=== PATIENT | female | born 1955 | race African-American/Black ===

== ENCOUNTER → 2018-11-13 | Outpatient (CLI) | payer BC, MEDICARE ==
[~2018-11-13] MED LIST: ALLEGRA180 MG; FLEXERIL; LISINOPRIL10 MG PO; LISINOPRIL20 MG PO; NEURONTIN 300300 M1 PO
== END ==
LOC: M.RAD 12:44
DX: Z12.31 Encounter for screening mammogram for malignant neoplasm of breast (principal); R07.89 Other chest pain; M79.622 Pain in left upper arm

== ENCOUNTER → 2019-11-24 | Outpatient (CLI) | payer MEDICARE | LOC: M.RAD 11:00 | PROVIDERS: ATTEND Family Medicine | DX: Z12.31 Encounter for screening mammogram for malignant neoplasm of breast (principal) ==

== ENCOUNTER → 2021-01-03 | Outpatient (CLI) | payer MEDICARE | LOC: M.RAD 09:28 | PROVIDERS: ATTEND Family Medicine | DX: Z12.31 Encounter for screening mammogram for malignant neoplasm of breast (principal); N63.20 Unspecified lump in the left breast, unspecified quadrant ==

== ENCOUNTER → 2021-01-09 | Outpatient (CLI) | payer MEDICARE | LOC: M.RAD 01-05 09:33 | PROVIDERS: ATTEND Radiology Diagnostic Radiology | DX: N63.24 Unspecified lump in the left breast, lower inner quadrant (principal) ==

== ENCOUNTER → 2021-01-12 | Outpatient (CLI) | payer MEDICARE ==
--- NOTE | 2021-01-19 13:08 | PATH ---
[address] [address] PATHOLOGY RPT PROCEDURE Name: RITU ROBBINS Room: [facility]#: [id number] Admission: 01/12/21 Date of : 51 Discharge: Report #: [id number] Path Case #: [id number] [facility] Accession Number: [id number] . 01 Material submitted: . breast - LEFT BREAST MASS. Modifiers: left . 01 Clinical history: . 1.03X1.12X1.08CM 700 5CM FROM NIPPLE US/MAMMOTOME BX/LT BREAST MASS COLLECTED 09,FORMALIN 0934 . 02 Diagnosis: Breast "left mass 7:00, 5 cfn", needle biopsy: - INVASIVE DUCTAL CARCINOMA, HIGH GRADE (GRADE 3/3 - TOTAL SCORE 6/9) - MAXIMUM TUMOR SPAN 7 MM. - DUCTAL CARCINOMA IN SITU, SOLID / COMEDO TYPES, NUCELAR GRADE III/III. - PLEASE SEE CANCER CASE SUMMARY BELOW. . CANCER CASE SUMMARY: (INVASIVE CARCINOMA OF THE BREAST - Biopsy) Version: 1.1.1.0 Protocol Posting Date: September 2020 Procedure ___ Needle biopsy Specimen Laterality ___ Left TUMOR +Tumor Site ___ Clock position ___ 7 o'clock ___ 5 cm from nipple Histologic Type ___ Invasive carcinoma of no special type (ductal) Histologic Grade (Highland Histologic Score) ___ Highland Score Glandular (Acinar) / Tubular Differentiation ___ Score 3 (less than 10% of tumor area forming glandular / tubular structures) Nuclear Pleomorphism ___ Score 3 (Vesicular nuclei, often with prominent nucleoli, visible nucleoli, exhibiting marked variation in size and shape, occasionally with very large and bizarre forms) Mitotic Rate ___ Score 2 Overall Grade ___ Grade 3 (total score 8) +Tumor Size ___ Greatest dimension of largest invasive focus greater than 1 mm: [place] [address] PATHOLOGY RPT PROCEDURE Name: RITU ROBBINS Room: [facility]#: [id number] Admission: 01/12/21 Date of : 51 Discharge: Report #: [id number] Path Case #: [id number] 7 mm . Ductal Carcinoma In Situ (DCIS) ___ Present Architectural Patterns ___ Comedo ___ Solid Nuclear Grade ___ Grade III (high) Necrosis ___ Present, focal (small foci or single cell necrosis) ___ Present, central (expansive "comedo" necrosis) +Lymphovascular Invasion ___ Not identified +Microcalcifications ___ Not identified . SPECIAL STUDIES +Breast Biomarker Studies: Block A3 will be forwarded for breast biomarker studies, and the results will be the subject of an addendum report. (MLK/db; 01/13/2021) LBQ 01/16/2021 1403 Local . 02 Comment: The case is seen in co-review with Dr. Denny Dias who concurs with the above diagnosis on 11/12/2020. . The above findings are discussed with Beena Lackey in Dr. Michele Dao, on 01/16/2021. (MLK/db; 01/13/2021) . 02 Addendum: . Special studies report received from [facility], [address] [place] [address], [address], [place], [address], on case [id number], labeled with their number [id number], dated 01/18/2021. . Breast Predictive/Prognostic Marker Analysis . . Specimen Site: Lt Breast Mass, 7:00, 5 Cm FN, Needle Biopsy, Breast Cancer Specimen ID #: [id number] . ER (Estrogen Receptor) Negative Percent: 0.00 Analysis: Manual Staining Intensity: Not Applicable Internal Control: [place] [address] PATHOLOGY RPT PROCEDURE Name: RITU ROBBINS Room: [facility] JESICA [place]#: [id number] Admission: 01/12/21 Date of : 51 Discharge: Report #: [id number] Path Case #: [id number] Comments: ER IHC reviewed with Dr Paula Packer (surgical pathologist) with concurrence. . UT (Progesterone Receptor) Negative Percent: 0.00 Analysis: Manual Staining Intensity: Not Applicable Internal Control: Present and Positive . HER2 Negative Score: 1+ Analysis: Manual . Ki-67 High Proliferation Percent: 70.00% Analysis: Manual . Time to Fixation (Cold Ischemic Time): 3 minutes Duration of Fixation: 12 hours, 16 minutes Type of Fixative: 10% Neutral Buffered Formalin . at [facility]. Frantz Lee MD Pathologist . Methodology: The HER2 Receptor protein expression is analyzed using the Cherry Log HER2 rabbit monoclonal antibody (clone [id number]). This assay is used for diagnostic determination of the HER2 protein over-expression in paraffin embedded, formalin fixed breast cancer tissue on the Cherry Log Benchmark. The specimen is processed using a secondary antibody-HRP conjugate detection system. The membrane staining of the tumor is determined either by manual score or image analysis. This antibody is intended for in vitro diagnostic use. The score is reported as 0, 1+, 2+, or 3+. This test is used for clinical purposes. . A rabbit monoclonal antibody (clone SP1) that recognized the Estrogen Receptor is used to perform immunohistochemistry on routinely fixed (formalin) paraffin embedded tissue on the Cherry Log Benchmark. The specimen is processed using a secondary antibody-HRP conjugate detection system. The percentage of stained tumor nuclei is determined either manually or by image analysis. This test is intended for in vitro diagnostic use. This test is used for clinical purposes. . A rabbit monoclonal antibody (clone 1E2) that [place] [address] PATHOLOGY RPT PROCEDURE Name: RITU ROBBINS Room: [facility]#: [id number] Admission: 01/12/21 Date of : 51 Discharge: Report #: [id number] Path Case #: [id number] Receptor is used to perform immunohistochemistry on routinely fixed (formalin) paraffin embedded tissue on the Cherry Log Benchmark. The specimen is processed using a secondary antibody-HRP conjugate detection system. The percentage of stained tumor nuclei is determined either manually or by image analysis. This test is intended for in vitro diagnostic use. This test is used for clinical purposes. . A rabbit monoclonal antibody (clone 30-9) that recognized Ki67 is used to perform immunohistochemistry on routinely fixed (formalin) paraffin embedded tissue on the [employer] Log Benchmark. The specimen is processed using a secondary antibody-HRP conjugate detection system. The percentage of stained tumor nuclei is determined either manually or by image analysis. This test is intended for in vitro diagnostic use. This test is used for clinical purposes. . Intended Use: This antibody is intended for in vitro diagnostic (IVD) use. HER2 (4B5) is a rabbit monoclonal antibody intended for the semi-quantitative detection of HER2 antigen in sections of formalin-fixed, paraffin embedded neoplastic tissue. . This antibody is intended for in vitro diagnostic (IVD) use. Estrogen Receptor (ER) (SP1) is a rabbit monoclonal antibody (IgG) that is intended for the qualitative detection of estrogen receptor (ER) antigen in sections of formalin-fixed, paraffin-embedded tissue. ER is a rabbit monoclonal antibody that recognizes human estrogen receptor alpha. . This antibody is intended for in vitro diagnostic (IVD) use. Progesterone Receptor (UT) (1E2) is a rabbit monoclonal antibody (IgG) that is intended for the qualitative detection of progesterone receptor (UT) antigen in sections of formalin fixed, paraffin embedded tissue. UT is a rabbit monoclonal antibody that recognizes the A and B forms of the human progesterone receptor. . This antibody is intended for in vitro diagnostic (IVD) use. Ki-67 (30-9) is a rabbit monoclonal antibody (IgG) directed against C-terminal portion of Ki-67 antigen. Staining for Ki-67 can be used to aid in assessing the proliferative activity of normal and neoplastic tissue. Ki-67 is a nuclear protein expressed in proliferating cells. During the cell cycle, the Ki-67 antigen is present in the G1, S, G2 and M phase but is absent in the G0 (quiescent phase). . Disclaimer: This Test was performed by [facility] at [address], [address]. . [facility] is a business unit of [facility] [employer]. a wholly-owned subsidiary [place] [address] PATHOLOGY RPT PROCEDURE Name: RITU ROBBINS Room: [facility]#: [id number] Admission: 01/12/21 Date of : 51 Discharge: Report #: [id number] Path Case #: [id number] . This assay has not been validated on decalcified tissues. Results should be interpreted with caution if this specimen was decalcified given the likelihood of false negativity on decalcified specimens. . Any image(s) that accompany this report is/are a rental sales representative image(s) only and should not be used to render a diagnosis. . This interpretation is contingent on the specimen and the clinical information received. . For any special tests/stains performed, known positive cells or tissues are tested with each marker and examined to ensure positivity. Positive and negative internal controls, if present, react appropriately. . This analysis is an adjunct to the evaluation of the referring physician and does not represent a final diagnosis. . The immunohistochemistry tests performed at [facility]. were validated on tissue fixed in 10% neutral buffered formalin. The performance characteristics of the tests performed on tissue processed in other fixatives is not known. . HER2 testing at [facility] is performed in compliance with the 2018 updated ASCO/CAP Clinical Practice Guideline Focused Update. If the result is EQUIVOCAL (2+), it must be confirmed by an alternative assay such as FISH. . REFERENCE: Vaughn CALDERON, Gale QUIROZ, Fiona KH, et al: Human epidermal growth factor receptor 2 testing in breast cancer: ASCO/CAP clinical practice guideline focused update. Arch Pathol Lab Med. 2018;142:0414-6308. . HER2 and ER/UT ASCO/CAP guidelines require fixation in neutral buffered formalin for a minimum of 6 and a maximum of 72 hours. Fixation times less than 6 hours may not adequately preserve cell proteins. Fixation times longer than 72 hours may cause excess cross-linking of proteins reducing the antigen available for staining. Either scenario can cause reduced staining; hence false negative results are possible and should be considered for these situations if the HER2 IHC score is less than 3+ or ER or UT is negative (no staining or <1% positive). It is recommended that specimens fixed longer than 72 hours with HER2 IHC scores less than 3+ be confirmed by HER2 FISH. The time from biopsy/excision to fixation in formalin (cold ischemic time) must be less than 1 hour. Time to fixation (cold ischemic time) greater than 1 hour should be interpreted with caution. HER2 testing, mainly HER2 by FISH, is particularly vulnerable since excessive cold ischemic time results in preferential loss of HER2 probe signals that may lead to false negative results. Use of unstained slides cut more than 6 weeks before analysis [place] [address] PATHOLOGY RPT PROCEDURE Name: RITU ROBBINS Room: [facility]#: [id number] Admission: 01/12/21 Date of : 51 Discharge: Report #: [id number] Path Case #: [id number] . ER/PgR testing at [facility] is performed in compliance with the ASCO/CAP Clinical Practice Guidelines. If the result for ER is less than 1% it is reported as Negative; if the ER result is 1-10% it is reported as Low Positive; if the ER result is greater than 10% it is reported as Positive. If the result for PgR is less than 1% it is reported as Negative; if the PgR result is equal to or greater than 1%, it is reported as Positive. . REFERENCE: Fiona HAYES, Gale FOYH, Gwyn M,et al. Estrogen and progesterone receptor testing in breast cancer. ASCO/CAP guideline update. Arch Pathol Lab Med. 2020;144:545-563. . . SCORE STAINING PATTERN IN TUMOR CELLS INTERPRETATION RESULTS 0 No staining observed or incomplete, faint membrane staining in less than or equal to 10% of tumor cells. Negative 1+ Incomplete, faint membrane staining in greater than 10% of tumor cells. Negative 2+ Weak to moderate complete membrane staining observed in greater than 10% of tumor cells. Equivocal* *Must be confirmed by alternative assay (IHC/FISH/Dual RAJ) 3+ Intense, complete membrane staining in greater than 10% of tumor cells. Positive . A complete copy of the report is on file. . Professional and Technical services performed by [facility] at [address], [place] [address]. . (MLK:amj 01/18/2021) . AZJ/01/18/2021 Addendum Electronically Signed by Edward Pop MD, Pathologist . 02 Electronically signed: . Edward Pop MD, Pathologist NPI- [id number] . 01 Gross description: . The specimen is received in formalin, labeled "Ritu Robbins, left breast mass 7:00". The specimen [place] [address] PATHOLOGY RPT PROCEDURE Name: RITU ROBBINS Room: [facility]#: [id number] Admission: 01/12/21 Date of : 51 Discharge: Report #: [id number] Path Case #: [id number] requisition as, "left breast mass 7:00 5 cm from nipple". Received are four needle cores of fibrofatty tissue measuring 1.0 x 0.8 x 0.2 cm in greatest dimensions. The specimen is submitted entirely in cassettes A1 through A3. The cold ischemic time is 3 minutes. The total formalin fixation time is 12 hours and 16 minutes. (CAA; 01/12/2021) QAC/QAC 01/12/2021 1553 Local . 02 Pathologist provided ICD-10: C50.912, D05.12 . 02 CPT . 724360 Specimen Comment: A courtesy copy of this report has been sent to [phone] Specimen Comment: [phone] Specimen Comment: Report sent to / DR CISNEROS Performed at: 01 [facility] [address] [id number] MD Prakash Melton MD Phone: [phone] Performed at: 02 [facility] [address] [id number] MD Trey Marie MD Phone: [phone]
== END | disposition home or self-care (01) ==
LOC: M.ULTRA 08:21
PROVIDERS: ATTEND Family Medicine
DX: C50.912 Malignant neoplasm of unspecified site of left female breast (principal); R92.1 Mammographic calcification found on diagnostic imaging of breast; Z79.899 Other long term (current) drug therapy; Z88.8 Allergy status to other drugs, medicaments and biological substances

== ENCOUNTER → 2021-01-24 | Outpatient (CLI) | payer MEDICARE ==
[~2021-01-24] MED LIST changes: +ADULT LOW DOSE81 MG PO; +BLACK ELDERBER1 EACH PO; +OMEPRAZOLE40 MG PO; +PRINIVIL20 M1 PO; +PROBIOTIC1 EAC2 PO; +VITAMIN D310 MC2 PO
[2021-01-24 14:21] LABS: CREATININE 1.1 mg/dL (0.6-1.3)
== END ==
LOC: M.LAB 13:30 → M.MRI 14:30
PROVIDERS: ATTEND Surgery
DX: C50.919 Malignant neoplasm of unspecified site of unspecified female breast (principal)

== ENCOUNTER → 2021-02-02 | Day surgery (SDC) | payer MEDICARE ==
[~2021-02-02] MED LIST changes: +ULTRAM 50MG TAB50 MG PO
[2021-02-02 08:59] LABS: HEMATOCRIT 26.6 % (37.0-47.0); HEMOGLOBIN 9.3 gm/dL (12.0-15.0); MCV 79.9 fL (80.0-100.0); RBC 3.33 mil/uL (4.20-5.00); RDW-CV 13.8 % (10.5-14.5); WBC 5.7 thou/uL (4.0-11.0)
[2021-02-02 09:15] LABS: CREATININE 0.7 mg/dL (0.6-1.3); POTASSIUM 3.9 mmol/L (3.5-5.1)
--- NOTE | 2021-02-02 12:21 | OP ---
[address] [address] OPERATIVE REPORT Name: MADISON YAN Room: [facility].#: [id number] Admission: 02/02/21 Attend Phys: Roselyn Ramirez DO Discharge: Date of : 51 Report #: [id number] THIS REPORT FOR: cc: Mihcele Dao Russell J. DO Brock, Christie M. DO ~ DATE OF SURGERY: 02/02/2021 PREOPERATIVE DIAGNOSIS: Left breast triple-negative breast cancer. POSTOPERATIVE DIAGNOSIS: Left breast triple-negative breast cancer. PROCEDURE: Normal right-sided IJ anatomy on ultrasound, tip of the catheter was seen in the superior vena cava on fluoroscopy. Fluoroscopy time was 37 seconds. SURGEON: Roselyn Ramirez DO CO-SURGEON: Lucas Garcia, PGY-1. LEGAL CASHIER: None. OPERATION PERFORMED: Right internal jugular ultrasound and fluoroscopy-guided chemo port placement with surgeon interpretation of images. ANESTHESIA: LMA and local. ESTIMATED BLOOD LOSS: 3 mL. DRAINS: None. SPECIMENS: None. COMPLICATIONS: None. CONDITION: Stable. DISPOSITION: PACU to home. HISTORY OF PRESENT ILLNESS: The patient is a avis 65-year-old female who is known to my office after a recent diagnosis of left-sided triple-negative breast cancer. She has been seen in consultation with Oncology and they have requested chemo port placement to begin neoadjuvant chemotherapy. Risks and benefits were discussed with the patient in detail and she agreed to proceed. DESCRIPTION OF PROCEDURE: The patient was brought to the operating room. She was placed supine on the operating room table. SCDs [place] [address] OPERATIVE REPORT Name: MADSION YAN Room: [facility].#: [id number] Admission: 02/02/21 Attend Phys: Roselyn Ramirez DO Discharge: Date of : 51 Report #: [id number] lower extremities. Ancef was given preoperatively. General LMA anesthesia was induced by anesthesia without difficulty. The patient was placed in the Trendelenburg position with head turned slightly to the left. Ultrasound was briefly brought into the field and the right IJ was identified and appeared to be patent. The right neck was then prepped and draped in the standard sterile fashion. Time-out was performed to verify the patient and procedure. A 10 mL of 0.5% Marcaine mixed with 1% lidocaine were injected in the area of the right IJ and along the right clavicle and right chest. Ultrasound was used to visualize the right internal jugular. The jugular was accessed with 1 pass of the needle, wire passed without difficulty. Needle was removed. Wire was again visualized in the jugular on ultrasound. Ultrasound was then handed off. Fluoroscopy was brought onto the field and the wire was visualized within the superior vena cava. A #15 blade was then used to create an incision in the infraclavicular region. Cautery was used to create a pocket. An #11 blade was utilized to create a lukas over the wire in the jugular. The dilator and breakaway catheter were introduced over the guidewire. Wire and dilator were removed. Chemo port tubing was introduced. Breakaway catheter was removed. Fluoroscopy was again brought onto the field and the tubing was visualized in the superior vena cava. Tubing was then tunneled into our previously created pocket. Fluoroscopy was once again brought into the field and the tubing was withdrawn until the tip of the catheter was clearly visualized in the superior vena cava. The tubing was then trimmed and connected to the subcutaneous port. Port was accessed with a Thibodeaux needle and we had excellent draw and flush, was vigorously irrigated with normal saline and then hep-locked with 3 mL of pre-prepared heparin solution. Port was sutured to the underlying fascia using 2 stitches of 3-0 Prolene. Wound was then closed in a layered fashion using deep and superficial stitches of 3-0 Vicryl in an inverted interrupted fashion. Skin wound was closed with running 4-0 Monocryl. Both wounds were then cleansed and covered with Dermabond. The patient was then allowed to awaken from anesthesia, was extubated and transported to the recovery room with no further difficulties. Counts were correct at the conclusion of the case. A total of 20 mL of 0.5% Marcaine and 1% lidocaine were used. <ELECTRONICALLY SIGNED> By: Roselyn Ramirez DO 02/02/21 1221 0924 1007Chcourtney Ramirez DO /nt
--- NOTE | 2021-02-02 12:42 | EKG ---
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
== END | disposition home or self-care (01) ==
LOC: M.SUR 06:42
PROVIDERS: Anesthesiology; ATTEND Surgery
DX: Z45.2 Encounter for adjustment and management of vascular access device (principal); C50.912 Malignant neoplasm of unspecified site of left female breast; I10 Essential (primary) hypertension; Z98.890 Other specified postprocedural states; Z79.899 Other long term (current) drug therapy; Z20.822 Contact with and (suspected) exposure to COVID-19

== ENCOUNTER → 2021-02-13 | Outpatient (CLI) | payer MEDICARE ==
--- NOTE | 2021-02-16 12:07 | PATH ---
[address] [address] PATHOLOGY RPT PROCEDURE Name: RITU ROBBINS Room: [facility] Carlos.#: [id number] Admission: 02/13/21 Date of : 51 Discharge: Report #: [id number] Path Case #: [id number] [facility] Accession Number: [id number] . 01 Material submitted: . lymph node - LEFT AXILLARY NODE. Modifiers: left, axillary tail . 01 Clinical history: . US/SOFT TISSUE LT AXILLA/ LT AXILLA BX/2ND LOOK/CA . 0.90 X 1.11 X 0.60CM HX INVASIVE DUCTAL CA . 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 See comment. (MARIOLA:sydnie; 02/16/2021) QTP 02/16/2021 1112 Local . 02 Comment: Both of the tissue cores show lymph node capsule at each end with benign lymphoid tissue between and many aggregates of melanin containing histiocytes typical of dermatopathic lymph adenitis. Properly controlled keratin LAKEISHA and keratin AE1/AE3 IHC stains performed respectively on A1 and A2 are negative. (MARIOLA:pit; 02/16/2021) . 02 Electronically signed: . Denny Dias MD, Pathologist NPI- [id number] . 01 Gross description: . The specimen is received in formalin, labeled "Ritu Robbins, left axilla node". Received are two needle cores of pale powell tissue measuring 0.8 and 1.6 cm in length, with each measuring 0.1 cm in diameter. The specimen is submitted entirely in cassettes A1 and A2. ([facility]; 02/14/2021) QA/QA 02/14/2021 0850 Local . 02 Pathologist provided ICD-10: Z80.3 . 02 CPT . 718091, F79691, J11388 Specimen Comment: A courtesy copy of this report has been sent to [phone] Specimen Comment: [address], [place] [address] PATHOLOGY RPT PROCEDURE Name: RITU ROBBINS Room: [facility]#: [id number] Admission: 02/13/21 Date of : 51 Discharge: Report #: [id number] Path Case #: [id number] Specimen Comment: Report sent to , DR YOUNG / DR CISNEROS Performed at: [address] [facility] [address], [place], [place] [id number] MD Prakash Melton MD Phone: [phone] Performed at: 02 [facility] [place] [address] [facility] , [place], [place] [id number] MD Denny Dias MD Phone: [phone]
== END | disposition home or self-care (01) ==
LOC: M.ULTRA 02-01 13:45
PROVIDERS: ATTEND Surgery
DX: I88.8 Other nonspecific lymphadenitis (principal); Z79.899 Other long term (current) drug therapy

== ENCOUNTER → 2021-03-20 | Outpatient (CLI) | payer MEDICARE | LOC: M.ULTRA 09:24 | PROVIDERS: ATTEND Internal Medicine Hematology & Oncology | DX: C50.512 Malignant neoplasm of lower-outer quadrant of left female breast (principal); N63.24 Unspecified lump in the left breast, lower inner quadrant; Z17.1 Estrogen receptor negative status [ER-] ==

== ENCOUNTER → 2021-05-01 | Outpatient (CLI) | payer MEDICARE | LOC: M.ULTRA 08:51 | PROVIDERS: ATTEND Surgery | DX: C50.912 Malignant neoplasm of unspecified site of left female breast (principal); N63.24 Unspecified lump in the left breast, lower inner quadrant ==

== ENCOUNTER → 2021-05-22 | Outpatient (CLI) | payer MEDICARE ==
[~2021-05-22] MED LIST changes: +FAMOTIDINE 40 M40 M1 PO; -PRINIVIL20 M1 PO; +TOPROL XL50 MG PO
== END | disposition home or self-care (01) ==
LOC: M.NUC 14:26
PROVIDERS: ATTEND Surgery
DX: C50.912 Malignant neoplasm of unspecified site of left female breast (principal); R59.0 Localized enlarged lymph nodes; Z79.899 Other long term (current) drug therapy

== ENCOUNTER 2021-05-23 06:05 | Observation (INO) | payer MEDICARE ==
[~2021-05-23] VITALS: Ht 152.4 cm; Wt 85.7 kg
[2021-05-23 06:50] LABS: HEMATOCRIT 23.2 % (37.0-47.0); HEMOGLOBIN 8.1 gm/dL (12.0-15.0); MCH 32.2 pg (26.0-34.0); MCHC 34.9 g/dL (28.0-37.0); MCV 92.2 fL (80.0-100.0); MPV 7.3 fl. (7.2-11.1); RBC 2.51 mil/uL (4.20-5.00); RDW-CV 17.2 % (10.5-14.5); WBC 8.5 thou/uL (4.0-11.0)
[2021-05-23 07:09] LABS: CALCIUM 9.3 mg/dL (8.5-10.1); CREATININE 1.1 mg/dL (0.6-1.3); POTASSIUM 3.6 mmol/L (3.5-5.1)
[2021-05-23] MEDS ORDERED: ULTRAM 50MG TAB50 MG PO (10:06)
[2021-05-23 12:00] VITALS: BP 140/61
[2021-05-23 20:00] VITALS: BP 127/70
[2021-05-24 08:27] VITALS: BP 117/65
--- NOTE | 2021-05-24 09:56 | OP ---
[address] [address] OPERATIVE REPORT Name: MADISON YAN Room: [address] Dariel Townsend#: [id number] Admission: 05/23/21 Attend Phys: Roselyn Ramirez DO Discharge: Date of : 51 Report #: [id number] THIS REPORT FOR: cc: Michele Dao Russell J. DO Brock, Christie M. DO ~ cc: Michele Dao DO DATE OF SURGERY: 05/23/2021 Kenn Yip DO, PGY5 is dictating operative report on behalf of Dr. Roselyn Ramirez. PREOPERATIVE DIAGNOSIS: Left breast cancer. POSTOPERATIVE DIAGNOSIS: Left breast cancer. PROCEDURE PERFORMED: Left breast mastectomy with left superficial sentinel lymph node dissection. SURGEON: Roselyn Ramirez DO. CO-SURGEON: Phi, [id number]. SENIOR ENGINEERING TECHNICIAN: [id number]. FINDINGS: Left breast nuclear medicine injection with uptake at the nipple of 520. Left superficial sentinel lymph node with uptake of 157. ANESTHESIA: General and local. ESTIMATED BLOOD LOSS: 10 mL. SPECIMENS: Left breast and left sentinel lymph node. COMPLICATIONS: None. HISTORY OF PRESENT ILLNESS: The patient is a 66-year-old female with history of triple negative left sided breast cancer. She received 4 weeks of neoadjuvant chemotherapy and a discussion was had over a breast conserving surgery versus mastectomy with lymph node dissection. She agreed to proceed with a mastectomy. After risks, benefits and alternatives were discussed at length, consent was obtained. DESCRIPTION OF PROCEDURE: The patient was taken to the operating room and placed in the supine position. SCDs applied to bilateral lower extremities. [address] [address] OPERATIVE REPORT Name: MADISON YAN LISA Room: [address] Dariel Townsend#: [id number] Admission: 05/23/21 Attend Phys: Roselyn Ramirez DO Discharge: Date of : 51 Report #: [id number] Safety belt was placed across the patient's waist. Two grams Ancef given for surgical prophylaxis. The patient underwent general endotracheal LMA anesthesia without any complication. The patient's chest was prepped and draped in the standard sterile fashion. Timeout was performed, confirming the patient and procedure. Lymphazurin blue was injected into the subareolar space to assist with lymph node dissection. The left breast was marked. The sternal border of the inferior mammary line of the axilla and the clavicle to assist with margins of dissection. A large elliptical incision around the nipple was created with a 10 blade scalpel from our medial to lateral margins. Electrocautery was used for hemostasis and to dissect down to the level of the breast tissue. Once the breast tissue was encountered, we then began to create our superior flap up towards the clavicle, our medial flap towards the sternal border, our inferior flap towards the inferior mammary line and the lateral flap towards the axilla. Electrocautery was used to complete this dissection and to assist with hemostasis. Once our flaps were created to borders of her breast, we then carried our dissection down towards the pectoralis fascia. Once the pectoralis fascia was encountered, we carefully began to dissect the breast tissue off of the pectoralis fascia, taking care to achieve hemostasis along the way, our dissection was carried medial to lateral. Once we got to the lateral aspect of our breast tissue, we carefully dissected the breast tissue completely off the pectoralis fascia. The breast tissue was maintained in correct orientation and a short stitch was placed in the superior margin and a long stitch was placed on the lateral margin. The Neoprobe was placed in the level of the nipple and uptake was 520. We then inspected her axilla and we noted that there was no uptake whatsoever. We then inspected the lateral aspect of our breast specimen and found a lymph node with some uptake of the Lymphazurin blue dye and it had a Neoprobe uptake of 157, confirming this was our sentinel nodes. [place] node was dissected free from her breast specimen and sent separately for pathologic evaluation. Her breast specimen was also sent for pathologic evaluation. Her pectoralis fascia was inspected all, areas of bleeding were then made hemostatic with electrocautery. The chest cavity was then irrigated copiously and all fluid was suctioned out. Surgiflo was placed along our pectoralis fascia to assist with hemostasis. We then placed a hubless 19-Y[place] MATT drain along the inferior margin of our specimen and the axilla. The subcutaneous tissue was then reapproximated in a layered closure of 3-0 Vicryl and skin was reapproximated in a running subcuticular fashion using 4-0 Monocryl. Drain was secured in place with a nylon suture. Sterile skin glue was applied to the incision. All needle, instrument and sponge counts correct x 2 at the end of the case. The patient was then awoken from general anesthesia and transferred to PACU in stable condition. <ELECTRONICALLY SIGNED> By: Roselyn Ramirez DO 05/24/21 [id number] Ramirez DO /nt
[2021-05-24 11:10] VITALS: BP 117/65
[2021-05-24 11:28] VITALS: BP 117/65
== END 2021-05-24 14:25 | disposition home or self-care (01) ==
LOC: M.TBA 06:05 → M.PRE 10:18 → M.2W 11:20 → M.PRE 14:32 → M.2W 05-24 14:25
PROVIDERS: ADMIT Surgery; ATTEND Surgery
DX: C50.912 Malignant neoplasm of unspecified site of left female breast (principal); Z20.822 Contact with and (suspected) exposure to COVID-19; Z79.899 Other long term (current) drug therapy